=== PATIENT | male | born 1990 | race Caucasian/White ===

== ENCOUNTER 2017-06-29 18:27 | Emergency (ER) | payer SELFPAY ==
--- NOTE | 2017-06-29 18:46 | ED ---
Neck Pain - HPI Summary HPI Summary: 26 year old male presents with complains of right jaw pain and right lower molar abscess. - History of Current Complaint Stated Complaint: JAW PAIN,NECK PAIN,HEADACHE Time Seen by Provider: 06/29/17 18:46 Hx Obtained From: Patient Onset/Duration Of Injury/Symptoms: Days Timing: Constant Onset/Duration: Sudden Onset, Started days ago Severity Initially: Moderate Severity Currently: Moderate Pain Scale Used: 0-10 Numeric - 8 - Allergies/Home Medications Allergies/Adverse Reactions: Allergies Allergy/AdvReac Type Severity Reaction Status Date / Time No Known Allergies Allergy Verified 06/29/17 18:51 Home Medications: Home Medications Cyclobenzaprine TAB* [Flexeril 10 MG TAB*] 10 mg PO BID PRN 06/29/17 [History Confirmed 06/29/17] Ibuprofen TAB* [Advil TAB*] 800 mg ONCE 06/29/17 [History Confirmed 06/29/17] PMH/Surg Hx/FS Hx/Imm Hx Previously Healthy: Yes Infectious Disease History: Denies: Traveled Outside the [place] in Last 30 Days Review of Systems Constitutional: Negative Eyes: Negative Positive: Dental Pain, Other - right tmj pain Cardiovascular: Negative Respiratory: Negative Gastrointestinal: Negative Genitourinary: Negative Musculoskeletal: Negative Skin: Negative Neurological: Negative All Other Systems Reviewed And Are Negative: Yes Physical Exam Triage Information Reviewed: Yes Appearance: Positive: Pain Distress Dental: Positive: Abscess @ - right lower molar abscess Neck: Positive: Supple Respiratory/Lung Sounds: Positive: Clear to Auscultation Neck Course/Dx - Diagnoses Provider Diagnoses: Dental abscess, TMJ (temporomandibular joint disorder) Discharge - Discharge Plan Condition: Stable Disposition: HOME Prescriptions: Amoxicillin/Clavulanate TAB* [Augmentin TAB 875*] 875 mg PO BID #20 tab Chlorhexidine MOUTHWASH 0.12%* [Peridex Mouth Wash 0.12%*] 15 ml MT TID #1 btl Methylprednisolone [Medrol Dosepak 4 MG*] 4 mg PO .SEE JONY INSTRUCTION #21 tab Patient Education Materials: Dental Abscess (ED), Temporomandibular Disorder ( ED) Referrals: Ruby Neville MD [Medical Doctor] - No Primary Care Phys,NOPCP [Primary Care Provider] -
[2017-06-29 18:51] VITALS: BP 137/70
== END 2017-06-29 19:09 | disposition home or self-care (01) ==
LOC: UCCORT 18:27
DX: M26.601 Right temporomandibular joint disorder, unspecified (principal); K04.7 Periapical abscess without sinus
CPT/HCPCS: 99202; G0463

== ENCOUNTER 2017-08-17 08:29 | Emergency (ER) | payer SELFPAY ==
[2017-08-17 09:47] VITALS: BP 114/76
--- NOTE | 2017-08-17 11:11 | UC ---
Lower Extremity/Ankle HPI - HPI Summary HPI Summary: Around 3pm yesterday pt pulling a loaded pallet while at work and felt a "pop" in his R knee. He had no pain at the time; however, upon waking today, noted pain in the front of his R knee. No fever, numb or weakness. Admits to a simialr issue with this about 8 years ago but doesn't recall any of the specifics and it did heal. - History of Current Complaint Chief Complaint: UCLowerExtremity Stated Complaint: RIGHT KNEE WC Time Seen by Provider: 08/17/17 10:38 Hx Obtained From: Patient Onset/Duration: Sudden Onset Pain Intensity: 10 Aggravating Factor(s): Ambulation Alleviating Factor(s): Rest Able to Bear Weight: Yes Related History: Occupational Injury - Risk Factors Gout Risk Factors: Negative DVT Risk Factors: Negative Septic Arthritis Risk Factor: Negative - Allergies/Home Medications Allergies/Adverse Reactions: Allergies Allergy/AdvReac Type Severity Reaction Status Date / Time No Known Allergies Allergy Verified 08/17/17 09:38 Home Medications: Home Medications Cephalexin CAP* [Keflex CAP*] 500 mg PO TID 08/17/17 [History Confirmed 08/17/17 ] PMH/Surg Hx/FS Hx/Imm Hx Previously Healthy: Yes - Surgical History Surgical History: None - Family History Known Family History: Positive: None - Social History Occupation: Employed Full-time - [employer] Alcohol Use: Rare Substance Use Type: None Smoking Status (MU): Former Smoker Type: eCigarettes - Immunization History Most Recent Influenza Vaccination: none Review of Systems Constitutional: Negative Skin: Negative Eyes: Negative ENT: Negative Respiratory: Negative Cardiovascular: Negative Gastrointestinal: Negative Genitourinary: Negative Motor: Negative Neurovascular: Negative Musculoskeletal: Other: - acute pain R upper anterior knee Neurological: Negative Psychological: Negative Is Patient Immunocompromised?: No All Other Systems Reviewed And Are Negative: Yes Physical Exam Triage Information Reviewed: Yes Appearance: Well-Appearing Vital Signs: Initial Vital Signs Temp 98.9 F 08/17/17 09:41 Pulse 74 08/17/17 09:41 BP 114/76 08/17/17 09:41 Pulse Ox 100 08/17/17 09:41 Vital Signs Reviewed: Yes Eye Exam: Normal ENT: Positive: Normal ENT inspection Neck: Positive: Supple, Nontender, No Lymphadenopathy Respiratory: Positive: Lungs clear, Normal breath sounds Cardiovascular: Positive: RRR, No Murmur Abdomen Description: Positive: Nontender, No Organomegaly, Soft Bowel Sounds: Positive: Present Musculoskeletal: Positive: Other: - RLE EXAM: R knee compared to L has no gross deformity, swelling or discoloration. It is not warm. Pt notes tender over quaricep tendon but no defect noted. No other tenderness. No joint laxity. Passive and active ROM is intact. Neurological: Positive: Alert Psychological: Positive: Age Appropriate Behavior Skin Exam: Normal Lower Extremity Course/Dx - Course Course Of Treatment: no pain at time of incident. pain upon waking is to pt's distal quadricep and junction of upper patella which is intack. will brock, limit duty and pt to take his 800mg motrin. no concern for fx, no joint laxity thus no xray or immobilizer to knee. no concern for infectio or dislocation. - Differential Dx/Diagnosis Provider Diagnoses: Quadricep tendon strain Discharge - Discharge Plan Condition: Stable Disposition: HOME Patient Education Materials: Knee Pain (ED) Forms: *Work Release Referrals: Balta Friedman MD [Medical Doctor] - Additional Instructions: USE THE BROCK AND TAKE YOUR 800MG MOTRIN EVERY 8 HOURS FOR 3 DAYS THEN NEEDED.
== END 2017-08-17 11:48 | disposition home or self-care (01) ==
LOC: UCCORT 08:29
DX: Z87.891 Personal history of nicotine dependence (principal); S76.111A Strain of right quadriceps muscle, fascia and tendon, initial encounter; X50.0XXA Overexertion from strenuous movement or load, initial encounter; Y93.89 Activity, other specified; Y92.89 Other specified places as the place of occurrence of the external cause; Y99.0 Civilian activity done for income or pay
CPT/HCPCS: 99212; G0463

== ENCOUNTER 2019-10-23 15:45 | Emergency (ER) | payer SELFPAY ==
[2019-10-23 16:02] VITALS: BP 139/86
--- NOTE | 2019-10-23 16:30 | UC ---
Back Pain HPI - HPI Summary HPI Summary: 29 yo male with lower thoracic back pain x 3 days Has had similar pains x 1 year or so relates it to an injury that occurred lifting usually occurs episodically and can last minutes to hours this is unusal in that it has lasted days no positional component or activity component never wakes him from sleep - History of Current Complaint Chief Complaint: UCBackPain Stated Complaint: BACK PAIN/R ANKLE PAIN Time Seen by Provider: 10/23/19 16:08 Hx Obtained From: Patient Onset/Duration: Sudden Onset, Lasting Days Timing: Constant Severity Initially: Severe Pain Intensity: 5 Pain Scale Used: 0-10 Numeric Character: Sharp Aggravating Factor(s): Nothing Alleviating Factor(s): Nothing Associated Signs And Symptoms: Positive: Negative Full Body (No Head): 1 - tender mid line an to right - Allergies/Home Medications Allergies/Adverse Reactions: Allergies Allergy/AdvReac Type Severity Reaction Status Date / Time prednisone Allergy Rash Verified 10/23/19 15:57 Home Medications: Home Medications NK [No Home Medications Reported] 10/23/19 [History Confirmed 10/23/19] PMH/Surg Hx/FS Hx/Imm Hx Previously Healthy: Yes - Surgical History Surgical History: None - Family History Known Family History: Positive: Hypertension Negative: Cardiac Disease, Diabetes - Social History Alcohol Use: Rare Substance Use Type: None Smoking Status (MU): Former Smoker Type: eCigarettes - Immunization History Most Recent Influenza Vaccination: none Review of Systems All Other Systems Reviewed And Are Negative: Yes Constitutional: Positive: Negative Skin: Positive: Negative Eyes: Positive: Negative ENT: Positive: Negative Respiratory: Positive: Negative Cardiovascular: Positive: Negative Gastrointestinal: Positive: Negative Genitourinary: Positive: Negative Motor: Positive: Negative Neurovascular: Positive: Negative Musculoskeletal: Positive: Arthralgia - back Neurological/Mental Status: Positive: Negative Psychological: Positive: Negative Physical Exam Triage Information Reviewed: Yes Appearance: Well-Appearing, No Pain Distress, Well-Nourished, Thin Vital Signs: Initial Vital Signs Temp 99 F 10/23/19 15:58 Pulse 93 10/23/19 15:58 Resp 16 04/21/20 15:58 BP 139/86 10/23/19 15:58 Pulse Ox 99 10/23/19 15:58 Vital Signs Reviewed: Yes Eyes: Positive: Conjunctiva Clear ENT: Positive: Hearing grossly normal. Negative: Nasal congestion, Nasal drainage, Trismus, Muffled voice, Hoarse voice Neck: Positive: Supple, Nontender, No Lymphadenopathy Respiratory: Positive: Lungs clear, Normal breath sounds, No respiratory distress Cardiovascular: Positive: RRR, No Murmur Musculoskeletal: Positive: ROM Intact, No Edema Neurological: Positive: Alert, Other: - strenght 5/5, DTRs symmetrical and brisk Psychological Exam: Normal Skin Exam: Normal - Additional Comments tender midline t-[id number] o t-10 Diagnostics - Radiology No standard instances Radiology Interpretation Completed By: Radiologist Summary of Radiographic Findings: SCHMORL'S NODES IN THE MID LOWER THORACIC SPINE Back Pain Course/Dx - Differential Dx/Diagnosis Provider Diagnosis: Schmorl's nodes of the thoracic region Discharge ED - Sign-Out/Discharge Documenting (check all that apply): Patient Departure All imaging exams completed and their final reports reviewed: Yes - Discharge Plan Condition: Stable Disposition: HOME Patient Education Materials: Back Pain (ED) Forms: *Work Release Referrals: No Primary Care Phys,NOPCP [Primary Care Provider] - Additional Instructions: suspected SCHMORL'S NODES IN THE MID LOWER THORACIC SPINE rest aleve 1 twice daily as needed for pain recheck in 1 week if not better find a Primary care provider at some point you may need an MRI of your back - Billing Disposition and Condition Condition: STABLE Disposition: Home
== END 2019-10-23 17:20 | disposition home or self-care (01) ==
LOC: UCCORT 15:45
DX: M51.44 Schmorl's nodes, thoracic region (principal); Z88.8 Allergy status to other drugs, medicaments and biological substances; Z87.891 Personal history of nicotine dependence
CPT/HCPCS: 72070; 99211; G0463